=== PATIENT | male | born 1960 | race Caucasian/White ===

== ENCOUNTER 2019-09-26 20:20 | Inpatient (IN) | payer OTHER ==
[~2019-09-26] VITALS: Ht 172.7 cm; Wt 65.4 kg
[2019-09-26 21:00] LABS: BASOPHILS ABSOLUTE AUTO 0.11 K/mm3 (0.00-0.23); BASOPHILS PERCENT AUTO 1 % (0-2); EOSINOPHILS ABSOLUTE AUTO 0.04 K/mm3 (0.00-0.68); EOSINOPHILS PERCENT AUTO 0 % (0-6); Hematocrit 55.6 % (37.0-53.0); Hemoglobin 18.6 g/dL (13.5-17.5); IMMATURE GRAN ABSOLUTE AUTO 0.05 K/mm3 (0.00-0.10); IMMATURE GRAN PERCENT AUTO 0 % (0-1); LYMPHOCYTES ABSOLUTE AUTO 1.65 K/mm3 (0.84-5.20); LYMPHOCYTES PERCENT AUTO 13 % (21-46); MONOCYTES ABSOLUTE AUTO 0.86 K/mm3 (0.16-1.47); MONOCYTES PERCENT AUTO 7 % (4-13); Mean Corpuscular HGB 32.1 pg (26.0-34.0); Mean Corpuscular HGB Conc 33.5 g/dL (31.5-36.5); Mean Corpuscular Volume 96 fL (80-100); Mean Platelet Volume 9.1 fL (9.1-12.4); NEUTROPHILS ABSOLUTE AUTO 10.31 K/mm3 (1.96-9.15); NEUTROPHILS PERCENT AUTO 79 % (41-73); NRBC ABSOLUTE 0.02 K/mm3 (0.00-0.02); NRBC Auto 0.2 /100 WBC (0.0-0.2); Platelet Count 253 K/mm3 (150-400); RDW Coefficient Variation 12.6 % (11.7-14.2); White Blood Cell Count 13.02 K/mm3 (4.00-11.30)
[2019-09-26 21:22] LABS: Alanine Aminotransfer (ALT/SGP 36 U/L (12-78); Albumin, Blood 3.5 g/dL (3.4-5.0); Albumin/Globulin Ratio 0.9 (0.8-1.8); Alk Phos 85 U/L (50-136); Anion Gap 7 mmol/L (6-16); Aspartate Aminotrans (AST/SGOT 61 U/L (12-37); Bilirubin, Total 0.4 mg/dL (0.1-1.0); Blood Urea Nitrogen 8 mg/dL (8-24); Bun/Creatinine Ratio 11.2 (12.0-20.0); CO2, Blood 27 mmol/L (21-32); Calcium, Blood 8.7 mg/dL (8.5-10.1); Chloride, Blood 106 mmol/L (98-108); Creatinine, Blood 0.72 mg/dL (0.60-1.20); Globulin, Blood 3.7 g/dL (2.2-4.0); Glomerular Filtration Rate >60 (60-); Glucose, Blood 117 mg/dL (70-99); Potassium, Blood 3.9 mmol/L (3.5-5.5); Sodium, Blood 140 mmol/L (136-145); Total Protein, Blood 7.2 g/dL (6.4-8.2)
[2019-09-26 23:54] LABS: Cholesterol 176 mg/dL (50-200); HDL Cholesterol 59 mg/dL (>39); LDL/HDL RATIO 1.1; Low Density Lipoprotein Chol 63 mg/dL (0-110); Triglycerides 269 mg/dL (30-160); Very Low Density Lipoprot Chol 53 mg/dL (6-32)
[2019-09-27] MEDS ORDERED: DULO60 PO (01:34)
[2019-09-27 04:38] LABS: BASOPHILS ABSOLUTE AUTO 0.07 K/mm3 (0.00-0.23); BASOPHILS PERCENT AUTO 0 % (0-2); EOSINOPHILS PERCENT AUTO 0 % (0-6); Hematocrit 52.8 % (37.0-53.0); Hemoglobin 17.8 g/dL (13.5-17.5); IMMATURE GRAN ABSOLUTE AUTO 0.09 K/mm3 (0.00-0.10); IMMATURE GRAN PERCENT AUTO 1 % (0-1); LYMPHOCYTES ABSOLUTE AUTO 0.94 K/mm3 (0.84-5.20); LYMPHOCYTES PERCENT AUTO 6 % (21-46); MONOCYTES ABSOLUTE AUTO 1.15 K/mm3 (0.16-1.47); MONOCYTES PERCENT AUTO 7 % (4-13); Mean Corpuscular HGB 31.6 pg (26.0-34.0); Mean Corpuscular HGB Conc 33.7 g/dL (31.5-36.5); Mean Corpuscular Volume 94 fL (80-100); NEUTROPHILS ABSOLUTE AUTO 14.47 K/mm3 (1.96-9.15); NEUTROPHILS PERCENT AUTO 87 % (41-73); Platelet Count 218 K/mm3 (150-400); RDW Coefficient Variation 12.5 % (11.7-14.2); RDW Standard Deviation 43.3 fL (35.1-46.3); Red Blood Cell Count 5.63 M/mm3 (4.30-5.90); White Blood Cell Count 16.72 K/mm3 (4.00-11.30)
[2019-09-27 04:56] LABS: Alanine Aminotransfer (ALT/SGP 31 U/L (12-78); Albumin, Blood 3.3 g/dL (3.4-5.0); Albumin/Globulin Ratio 0.9 (0.8-1.8); Alk Phos 94 U/L (50-136); Anion Gap 8 mmol/L (6-16); Aspartate Aminotrans (AST/SGOT 45 U/L (12-37); Bilirubin, Total 0.8 mg/dL (0.1-1.0); Blood Urea Nitrogen 8 mg/dL (8-24); Bun/Creatinine Ratio 12.2 (12.0-20.0); CO2, Blood 24 mmol/L (21-32); Calcium, Blood 7.8 mg/dL (8.5-10.1); Chloride, Blood 109 mmol/L (98-108); Creatinine, Blood 0.66 mg/dL (0.60-1.20); Globulin, Blood 3.5 g/dL (2.2-4.0); Glomerular Filtration Rate >60 (60-); Glucose, Blood 131 mg/dL (70-99); Potassium, Blood 4.1 mmol/L (3.5-5.5); Sodium, Blood 141 mmol/L (136-145); Total Protein, Blood 6.8 g/dL (6.4-8.2)
--- NOTE | 2019-09-27 05:13 | NUR ---
SHIFT SUMMARY- PT. ADMIT FROM ED. A&OX4, INDEPENDENT IN ROOM. PT. C/O ABD PAIN AND NA, MEDICATED PER EMAR WITH MINIMAL RELIEF. PT. RESTED ON/OFF DURING THE NIGHT. NO APPARENT DISTRESS NOTED. PT. NPO, IV FLUIDS INFUSING. CALL LIGHT WITHIN REACH AND SIDE RAILS UP X2. WILL CONT TO MONITOR.
--- NOTE | 2019-09-27 16:21 | NUR ---
DR PABLO NOTIFIED OF CHANGE IN PATIENT VS. HR INCREASED TO THE 130'S. ORDERS RECEIVED TO INCREASE FLUIDS TO 200ML/HR X2 HOURS AND THEN CONTINUE AT 100ML/HR AFTER THAT.
--- NOTE | 2019-09-27 17:58 | NUR ---
PATIENT A/OX4, UP WITH SBA. SKIN INTACT. 20G IV TO R WRIST WNL. NS INFUSING AT 200ML/HR X2 HOURS AND THEN WILL BE DECREASED TO 100ML/HR. PAIN IMPROVED THROUGHOUT THE SHIFT. B/P REMAINS ELEAVTED. HYDRALAZINE GIVEN X3 THIS SHIFT AND CLONIDINE X1 TO CONTROL. HR INCREASING THROUGHOUT THE DAY, HIGH THE 130'S. DR. CLAYTON AWARE OF CHANGE IN VSS AND INCREASED RATE OF FLUIDS. ATIVAN GIVEN THIS AM PER MD ORDER AND PATIENT VERY DROWSY AND CONFUSED FOR MOST OF THE DAY AFTER RECEIVING. CONTINUES TO HAVE N/V, TREATING WITH ZOFRAN WITH STATED RELEIF. MRI OF ABDOMEN ORDERED AND WILL BE COMPLETED THIS EVENING. CIWA SCORES WERE WNL, PATIENT DOES HAVE MODERATE TREMOR. PATIENT REMAINS NPO.
[2019-09-28 05:13] LABS: U Amphetamine Screen DETECTED; U Barbituate Screen Not Detected; U Benzodiazapine Screen DETECTED; U Buprenorphine Screen Not Detected; U Cannabinoids Screen Not Detected; U Cocaine Screen Not Detected; U Methadone Screen Not Detected; U Methamphetamine Screen DETECTED; U Opiates Screen DETECTED; U Oxycodone Screen Not Detected; U Phencyclidine Screen Not Detected; U Propoxyphene Screen Not Detected
[2019-09-28 05:26] LABS: BASOPHILS ABSOLUTE AUTO 0.03 K/mm3 (0.00-0.23); BASOPHILS PERCENT AUTO 0 % (0-2); EOSINOPHILS PERCENT AUTO 0 % (0-6); Hematocrit 47.8 % (37.0-53.0); Hemoglobin 16.1 g/dL (13.5-17.5); IMMATURE GRAN ABSOLUTE AUTO 0.28 K/mm3 (0.00-0.10); IMMATURE GRAN PERCENT AUTO 1 % (0-1); LYMPHOCYTES ABSOLUTE AUTO 0.53 K/mm3 (0.84-5.20); LYMPHOCYTES PERCENT AUTO 3 % (21-46); MONOCYTES ABSOLUTE AUTO 1.39 K/mm3 (0.16-1.47); MONOCYTES PERCENT AUTO 7 % (4-13); Mean Corpuscular HGB 31.4 pg (26.0-34.0); Mean Corpuscular HGB Conc 33.7 g/dL (31.5-36.5); Mean Corpuscular Volume 93 fL (80-100); NEUTROPHILS ABSOLUTE AUTO 18.29 K/mm3 (1.96-9.15); NEUTROPHILS PERCENT AUTO 89 % (41-73); Platelet Count 181 K/mm3 (150-400); RDW Standard Deviation 44.7 fL (35.1-46.3); Red Blood Cell Count 5.12 M/mm3 (4.30-5.90); White Blood Cell Count 20.52 K/mm3 (4.00-11.30)
[2019-09-28 05:46] LABS: Alanine Aminotransfer (ALT/SGP 21 U/L (12-78); Albumin, Blood 2.6 g/dL (3.4-5.0); Albumin/Globulin Ratio 0.6 (0.8-1.8); Alk Phos 77 U/L (50-136); Anion Gap 7 mmol/L (6-16); Aspartate Aminotrans (AST/SGOT 44 U/L (12-37); Bilirubin, Total 1.2 mg/dL (0.1-1.0); Blood Urea Nitrogen 11 mg/dL (8-24); Bun/Creatinine Ratio 15.4 (12.0-20.0); CO2, Blood 26 mmol/L (21-32); Calcium, Blood 8.1 mg/dL (8.5-10.1); Chloride, Blood 108 mmol/L (98-108); Creatinine, Blood 0.72 mg/dL (0.60-1.20); Glomerular Filtration Rate >60 (60-); Glucose, Blood 104 mg/dL (70-99); Potassium, Blood 3.5 mmol/L (3.5-5.5); Sodium, Blood 141 mmol/L (136-145); Total Protein, Blood 6.6 g/dL (6.4-8.2)
--- NOTE | 2019-09-28 06:15 | NUR ---
SHIFT SUMMARY ASSUMED CARE OF PT AT 1900. PT IS A/OX4, DENIES N/T IN EXTREMITES. HEART SOUNDS REGULAR, LUNG SOUNDS CLEAR, DENIES CP/SOB AT THIS TIME. PT HAD TWO EPISODES OF ELEVEATED BP, MEDICATED PER EMAR. PT PULLED OUT IV, STATING IT WAS CAUGHT ON SOMETHING. PT C/O PAIN IN ABB AND NEASEA, MEDICATED PER EMAR. PT WAS UNABLE TO HAND MRI YESTERDAY EVENING BEUCASE HE GOT CLOSTERPHOBIC AND YELLED TO HAVE THE TEST STOPPED. ATTEMPTING ANOTHER MRI TODAY, PT REMINED NPO. PT SLEPT T/O THE WHOLE SHIFT. CALL LIGHT IN REACH, BED IN LOWEST POSTION, WILL CONTINUE TO MONITOR UNTIL DAYSHIFT NURSE ARRIVES.
--- NOTE | 2019-09-28 17:01 | NUR ---
PT IS ALERT AND ORIENTED X4. HEART SOUNDS REGULAR, CLEAR LUNG SOUNDS IN ALL SIDES. NO SOB. CIWA OF 2 AND NO APPARENT DISTRESS. PT WAS UNABLE TO DO THE MRI TODAY DUE TO CLAUTROPHOBIC AND INCREASED ANXIETY, INSTEAD HE HAD CT CONTRAST DONE TODAY ON HIS ABD AND PELVIS. PT HAD A COUPLE EPISODES OF ELEVATED BP TODAY, PT C/O OF PAIN IN HIS ABD AND MODERATE HEADACHE; MEDICATED PER EMAR. CLEAR LIQUIDS IS ORDERED PER EMAR. PT WAS NOT ABLE TO TOLERATE CLEAR BROTH, BUT DRINK A LITTLE BIT OF WATER. CALL LIGHT WITHIN REACH, BED IN THE LOWEST POSITION, AND WILL CONTINUE MONITORING.
--- NOTE | 2019-09-29 05:09 | NUR ---
SHIFT SUMMARY ASSUMED CARE OF PT AT 1900. PT IS A/OX4, DENIES N/T IN EXTREMITES. HEART SOUNDS IRREGULAR, LUNG SOUNDS CLEAR, DENIES SOB/CP AT THIS TIME. ABD DISTENDED AND FIRM. C/O PAIN, MEDICATED PER EMAR. PT BP WAS ELAVATED OVER 170 SYSTOLIC, MEDICATED PER EMAR. PT IS MORE ALERT AND AWAKE THAT THE PAST COUPLE OF DAYS. NO ACUTE EVENTS DURING THE NIGHT. PT SLEPT T/O THE NIGHT. CALL LIGHT IN REACH, BED IN LOWEST POSTION, WILL CONTINUE TO MONITOR UNTIL DAYSHIFT NURSE ARRIVES.
[2019-09-29 05:26] LABS: BASOPHILS ABSOLUTE AUTO 0.03 K/mm3 (0.00-0.23); BASOPHILS PERCENT AUTO 0 % (0-2); EOSINOPHILS PERCENT AUTO 0 % (0-6); Hematocrit 42.4 % (37.0-53.0); Hemoglobin 14.4 g/dL (13.5-17.5); IMMATURE GRAN ABSOLUTE AUTO 0.15 K/mm3 (0.00-0.10); IMMATURE GRAN PERCENT AUTO 1 % (0-1); LYMPHOCYTES ABSOLUTE AUTO 0.75 K/mm3 (0.84-5.20); LYMPHOCYTES PERCENT AUTO 5 % (21-46); MONOCYTES ABSOLUTE AUTO 1.22 K/mm3 (0.16-1.47); MONOCYTES PERCENT AUTO 8 % (4-13); Mean Corpuscular HGB 32.1 pg (26.0-34.0); Mean Corpuscular Volume 94 fL (80-100); Mean Platelet Volume 10.1 fL (9.1-12.4); NEUTROPHILS ABSOLUTE AUTO 13.44 K/mm3 (1.96-9.15); NEUTROPHILS PERCENT AUTO 86 % (41-73); Platelet Count 145 K/mm3 (150-400); RDW Standard Deviation 45.2 fL (35.1-46.3); Red Blood Cell Count 4.49 M/mm3 (4.30-5.90); White Blood Cell Count 15.59 K/mm3 (4.00-11.30)
[2019-09-29 05:50] LABS: Alanine Aminotransfer (ALT/SGP 18 U/L (12-78); Albumin, Blood 2.6 g/dL (3.4-5.0); Albumin/Globulin Ratio 0.7 (0.8-1.8); Alk Phos 62 U/L (50-136); Anion Gap 8 mmol/L (6-16); Aspartate Aminotrans (AST/SGOT 33 U/L (12-37); Blood Urea Nitrogen 8 mg/dL (8-24); CO2, Blood 27 mmol/L (21-32); Chloride, Blood 104 mmol/L (98-108); Creatinine, Blood 0.62 mg/dL (0.60-1.20); Globulin, Blood 3.5 g/dL (2.2-4.0); Glomerular Filtration Rate >60 (60-); Glucose, Blood 89 mg/dL (70-99); Potassium, Blood 3.3 mmol/L (3.5-5.5); Sodium, Blood 139 mmol/L (136-145); Total Protein, Blood 6.1 g/dL (6.4-8.2)
--- NOTE | 2019-09-29 15:27 | NUR ---
PATIENT A/OX4, UP INDEPENDENTLY IN ROOM. PAIN IMPORVED TODAY TO ABDOMEN. DECREASED FENTANYL DOSE FROM 50MCG TO 25MCG WITH STATED RELIEF. ADVANCED TO BRAT DIET. PATIENT STILL TAKING IN VERY LITTLE PO. DENIES ANY NAUSEA THIS SHIFT. NS WITH 20K INFUSING AT 75ML/HR. SKIN INTACT. 20G IV TO R FA WNL. CALM AND COOPERATIVE WITH CARE, CALLS APPROPRIATELY FOR ASSISTANCE.
--- NOTE | 2019-09-29 18:38 | NUR ---
SHIFT SUMMARY PT HAS BEEN SLEEPING SINCE THIS RN ASSUMED CARE. PT AWAKE NOW AND C/O ABD/BACK/NECK PAIN. MEDICATED FOR PAIN PER EMAR. PT HAS NO FURTHER COMPLAINTS OR REQUESTS AT THIS TIME. CALL LIGHT IN REACH. WILL REPORT TO ONCOMING RN.
--- NOTE | 2019-09-30 04:46 | NUR ---
SHIFT SUMMARY ASSUMED CARE OF PT AT 1900. PT IS A/OX4, DENIES N/T IN EXTRMITES. HEART SOUNDS REGULAR, LUNG SOUNDS CLEAR, DENIES SOB/CP AT THIS TIME. PT C/O PAIN IN HIS ABD, MEDICATED PER EMAR. PT IS INDEPENDENT TO THE BATHROOM. PT IS ASKING ABOUT GOING HOME TODAY. NO ACUTE EVENTS DURING THE NIGHT. PT SLEPT MOST OF THE NIGHT. CALL LIGHT IN REACH, BED IN LOWEST POSTION, WILL CONTINUE TO MONITOR UNTIL DAYSHIFT NURSE ARRIVES.
[2019-09-30 05:27] LABS: BASOPHILS ABSOLUTE AUTO 0.02 K/mm3 (0.00-0.23); BASOPHILS PERCENT AUTO 0 % (0-2); EOSINOPHILS ABSOLUTE AUTO 0.02 K/mm3 (0.00-0.68); EOSINOPHILS PERCENT AUTO 0 % (0-6); Hematocrit 40.8 % (37.0-53.0); Hemoglobin 13.7 g/dL (13.5-17.5); IMMATURE GRAN ABSOLUTE AUTO 0.06 K/mm3 (0.00-0.10); IMMATURE GRAN PERCENT AUTO 1 % (0-1); LYMPHOCYTES ABSOLUTE AUTO 0.74 K/mm3 (0.84-5.20); LYMPHOCYTES PERCENT AUTO 7 % (21-46); MONOCYTES ABSOLUTE AUTO 1.07 K/mm3 (0.16-1.47); MONOCYTES PERCENT AUTO 10 % (4-13); Mean Corpuscular HGB 32.1 pg (26.0-34.0); Mean Corpuscular HGB Conc 33.6 g/dL (31.5-36.5); Mean Corpuscular Volume 96 fL (80-100); Mean Platelet Volume 9.9 fL (9.1-12.4); NEUTROPHILS ABSOLUTE AUTO 8.57 K/mm3 (1.96-9.15); NEUTROPHILS PERCENT AUTO 82 % (41-73); Platelet Count 143 K/mm3 (150-400); RDW Coefficient Variation 12.7 % (11.7-14.2); RDW Standard Deviation 44.5 fL (35.1-46.3); Red Blood Cell Count 4.27 M/mm3 (4.30-5.90); White Blood Cell Count 10.48 K/mm3 (4.00-11.30)
[2019-09-30 05:54] LABS: Anion Gap 6 mmol/L (6-16); Blood Urea Nitrogen 6 mg/dL (8-24); CO2, Blood 29 mmol/L (21-32); Calcium, Blood 7.9 mg/dL (8.5-10.1); Chloride, Blood 104 mmol/L (98-108); Glomerular Filtration Rate >60 (60-); Glucose, Blood 108 mg/dL (70-99); Potassium, Blood 3.2 mmol/L (3.5-5.5); Sodium, Blood 139 mmol/L (136-145)
--- NOTE | 2019-09-30 18:25 | NUR ---
SHIFT SUMMARY. A&OX4, INDEPENDENT IN ROOM, NO SAFETY CONCERNS. PT CONTINUES WITH ABD PAIN THROUGHOUT SHIFT, PAIN MANAGED WITH CURRENT ORDERS. PT REPORTED NAUSEA WITHOUT VOMMITTING THIS AM, NAUSEA RESOLVED WITH IV ZOFRAN. CONTINUES WITH MAINTENCE FLUIDS, IV PATENT. NO NEW CHANGES OR CONCERNS.
--- NOTE | 2019-10-01 04:49 | NUR ---
BILL OF LADING CLERK SUMMARY NO ACUTE CHANGES THIS SHIFT. PT AAOX4 AND INDEPENDENT. MEDICATED FOR ABD PAIN WITH FENTANYL 25 MCG Q4H. PT HAS BEEN ABLE TO REST THE MAJORITY OF THE SHIFT. PT EXPRESSED THE WANT TO QUIT DRINKING ALCOHOL AND SMOKING CIGARETTES ONCE DISCHARGED. WILL CONTINUE TO MONITOR.
--- NOTE | 2019-10-01 18:08 | NUR ---
SHIFT SUMMARY: PT A&O X4 AND 1 PERSON ASSIST IN ROOM. PT ABLE TO AMBULATE TO BATHROOM WITH PHYSICAL THERAPY. HE IS USING THE URINAL IN BED AND HAS BEEN CONTINENT TODAY. PT HAS REPORTED TOLERABLE LEVELS OF PAIN AND HAS DENIED ANY NEED FOR PAIN MEDICATION. HE HAS ALSO REPORTED NO NAUSEA. LUNGS ARE COARSE THROUGHOUT. PT ON RA. WILL CONTINUE TO MONITOR PT UNTIL GIVING REPORT TO NIGHT RN.
--- NOTE | 2019-10-01 18:17 | NUR ---
SHIFT SUMMARY: PT A&O X4 AND IS INDEPENDENT IN ROOM. PT MEDICATED FOR ABD PAIN THROUGHOUT THE SHIFT. SEE EMAR. LUNGS ARE CLEAR AND PT IS ON RA. PT DENIES ANY NAUSEA. PT WALKED THE HALLWAY SEVERAL TIMES THROUGHOUT SHIFT. WILL CONTINUE TO MONITOR PT UNTIL GIVING REPORT TO NIGHT RN.
--- NOTE | 2019-10-02 05:00 | NUR ---
GLASS MOULD CLEANER SUMMARY AAOX4. NO ACUTE CHANGES THROUGHOUT SHIFT. PT REPORTED ABD PAIN MEDICATED ACCORDING TO EMR. PT REPORTED RELIEF AFTER MEDICATION. VVS. WILL CONTIUNE TO MOINTOR UNTIL SHIFT CHANGE.
[2019-10-02 06:08] LABS: BASOPHILS ABSOLUTE AUTO 0.05 K/mm3 (0.00-0.23); BASOPHILS PERCENT AUTO 0 % (0-2); EOSINOPHILS ABSOLUTE AUTO 0.16 K/mm3 (0.00-0.68); EOSINOPHILS PERCENT AUTO 1 % (0-6); Hematocrit 43.6 % (37.0-53.0); Hemoglobin 15.1 g/dL (13.5-17.5); IMMATURE GRAN ABSOLUTE AUTO 0.05 K/mm3 (0.00-0.10); IMMATURE GRAN PERCENT AUTO 0 % (0-1); LYMPHOCYTES ABSOLUTE AUTO 1.47 K/mm3 (0.84-5.20); LYMPHOCYTES PERCENT AUTO 13 % (21-46); MONOCYTES PERCENT AUTO 15 % (4-13); Mean Corpuscular HGB 31.7 pg (26.0-34.0); Mean Corpuscular HGB Conc 34.6 g/dL (31.5-36.5); NEUTROPHILS PERCENT AUTO 69 % (41-73); RDW Coefficient Variation 12.2 % (11.7-14.2); RDW Standard Deviation 41.4 fL (35.1-46.3); Red Blood Cell Count 4.77 M/mm3 (4.30-5.90); White Blood Cell Count 11.13 K/mm3 (4.00-11.30)
[2019-10-02 06:20] LABS: Mean Corpuscular Volume 91 fL (80-100); Platelet Count 131 K/mm3 (150-400)
[2019-10-02 06:32] LABS: Alanine Aminotransfer (ALT/SGP 32 U/L (12-78); Albumin, Blood 2.7 g/dL (3.4-5.0); Albumin/Globulin Ratio 0.7 (0.8-1.8); Alk Phos 70 U/L (50-136); Anion Gap 8 mmol/L (6-16); Aspartate Aminotrans (AST/SGOT 49 U/L (12-37); Bilirubin, Total 0.8 mg/dL (0.1-1.0); Blood Urea Nitrogen 9 mg/dL (8-24); Bun/Creatinine Ratio 14.9 (12.0-20.0); CO2, Blood 25 mmol/L (21-32); Calcium, Blood 8.6 mg/dL (8.5-10.1); Chloride, Blood 101 mmol/L (98-108); Globulin, Blood 4.1 g/dL (2.2-4.0); Glomerular Filtration Rate >60 (60-); Glucose, Blood 96 mg/dL (70-99); Potassium, Blood 3.9 mmol/L (3.5-5.5); Sodium, Blood 134 mmol/L (136-145); Total Protein, Blood 6.8 g/dL (6.4-8.2)
[2019-10-02] MEDS ORDERED: LISI20 PO (08:20)
[2019-10-02] MEDS ORDERED: ALBU90OI INH (08:20)
[2019-10-02] MEDS ORDERED: MULTIVITAMINS1 EAC3 PO (08:26)
--- NOTE | 2019-10-02 09:47 | NUR ---
DISCHARGE INSTRUCTIONS REVIEWED WITH PT, IV DC'D INTACT BY RN STUDENT. PT CURRENTLY AWAITING RIDE HOME.
--- NOTE | 2019-10-02 09:54 | NUR ---
PT TO DISCHARGED AT 0953, ESCORTED OUT VIA W/C.
== END 2019-10-02 09:53 | disposition home or self-care (01) | DRG 439 ==
LOC: ER 20:20 → MEDS 09-27 01:14 → ENPENDDIS 10-02 08:00 → MEDS 10-02 09:53
PROVIDERS: Emergency Medicine; Internal Medicine; Internal Medicine Gastroenterology; ADMIT Internal Medicine
DX: K85.20 Alcohol induced acute pancreatitis without necrosis or infection (principal); F10.239 Alcohol dependence with withdrawal, unspecified; F32.9 Major depressive disorder, single episode, unspecified; E86.0 Dehydration; E87.6 Hypokalemia; I10 Essential (primary) hypertension; D18.09 Hemangioma of other sites; F17.210 Nicotine dependence, cigarettes, uncomplicated
CPT/HCPCS: 36415; 74177; 74183; 76705; 80048; 80053; 80061; 82105; 83690; 83735; 85025; 93005; 93010; 96361; 96374; 96375; 99285-25; A9270; J0360; J1170; J1650; J2060; J2270; J2405; J3010; J3480; J7030; Q9967

== ENCOUNTER 2020-02-28 09:22 | Inpatient (IN) | payer OTHER ==
[~2020-02-28] VITALS: Ht 172.7 cm; Wt 62.1 kg
[~2020-02-28 09:22] MED LIST: ALBU90OI INH; DULO60 PO; LISI20 PO; MULTIVITAMINS1 EAC3 PO
[2020-02-28 10:17] LABS: BASOPHILS ABSOLUTE AUTO 0.03 K/mm3 (0.00-0.23); BASOPHILS PERCENT AUTO 0 % (0-2); EOSINOPHILS PERCENT AUTO 0 % (0-6); Hematocrit 48.1 % (37.0-53.0); Hemoglobin 16.5 g/dL (13.5-17.5); IMMATURE GRAN ABSOLUTE AUTO 0.04 K/mm3 (0.00-0.10); IMMATURE GRAN PERCENT AUTO 0 % (0-1); LYMPHOCYTES ABSOLUTE AUTO 0.64 K/mm3 (0.84-5.20); LYMPHOCYTES PERCENT AUTO 5 % (21-46); MONOCYTES ABSOLUTE AUTO 1.15 K/mm3 (0.16-1.47); MONOCYTES PERCENT AUTO 10 % (4-13); Mean Corpuscular HGB 34.2 pg (26.0-34.0); Mean Corpuscular HGB Conc 34.3 g/dL (31.5-36.5); Mean Corpuscular Volume 100 fL (80-100); Mean Platelet Volume 9.5 fL (9.1-12.4); NEUTROPHILS ABSOLUTE AUTO 10.12 K/mm3 (1.96-9.15); NEUTROPHILS PERCENT AUTO 85 % (41-73); Platelet Count 224 K/mm3 (150-400); RDW Coefficient Variation 13.2 % (11.7-14.2); RDW Standard Deviation 48.5 fL (35.1-46.3); Red Blood Cell Count 4.82 M/mm3 (4.30-5.90); White Blood Cell Count 11.98 K/mm3 (4.00-11.30)
[2020-02-28 10:38] LABS: Alanine Aminotransfer (ALT/SGP 27 U/L (12-78); Albumin, Blood 3.2 g/dL (3.4-5.0); Albumin/Globulin Ratio 0.8 (0.8-1.8); Alk Phos 107 U/L (50-136); Anion Gap 7 mmol/L (6-16); Aspartate Aminotrans (AST/SGOT 44 U/L (12-37); Bilirubin, Total 2.1 mg/dL (0.1-1.0); Blood Urea Nitrogen 10 mg/dL (8-24); CO2, Blood 27 mmol/L (21-32); Calcium, Blood 8.6 mg/dL (8.5-10.1); Chloride, Blood 105 mmol/L (98-108); Creatinine, Blood 0.83 mg/dL (0.60-1.20); Globulin, Blood 3.9 g/dL (2.2-4.0); Glomerular Filtration Rate >60 (60-); Glucose, Blood 140 mg/dL (70-99); Potassium, Blood 3.7 mmol/L (3.5-5.5); Sodium, Blood 139 mmol/L (136-145); Total Protein, Blood 7.1 g/dL (6.4-8.2); Troponin I <0.015 ng/mL (0.000-0.040)
[2020-02-28] MEDS ORDERED: Aspirin EC81 MG PO (11:28)
[2020-02-28] MEDS ORDERED: ALBU90OI INH (11:28)
[2020-02-28] MEDS ORDERED: LISI10 PO (11:29)
[2020-02-28] MEDS ORDERED: OMEP20ER PO (11:29)
[2020-02-28] MEDS ORDERED: ATORVASTATIN CA10 M1 PO (11:29)
[2020-02-28] MEDS ORDERED: CYCL10 PO ×2 (11:29→13:36)
[2020-02-28] MEDS ORDERED: DULO60 PO (11:29)
[2020-02-28 13:44] LABS: Source, Urine Clean Catch
[2020-02-28 13:52] LABS: Appearance, Urine Clear (Clear); Blood, Urine 1+ (Neg); Color, Urine Amber (P-Yellow); Glucose Qualitative, Urine Neg (Neg); Ketones, Urine 3+ (Neg); Leukocyte Esterase, Urine 1+ (Neg); Nitrite, Urine Pos (Neg); Protein, Urine 2+ (Neg); Specific Gravity, Urine 1.025 (1.003-1.022); Urobilinogen, Urine 1+ (Normal)
[2020-02-28 14:09] LABS: Bilirubin, Urine 1+ (Neg)
[2020-02-28 14:11] LABS: Mucus Mod (0-Heavy)
[2020-02-28 14:13] LABS: Bacteria Mod /hpf; Squamous Epithelial Cells Not Seen /hpf (Few)
--- NOTE | 2020-02-28 16:46 | NUR ---
PT ARRIVED TO UNIT VIA STRETCHER, A/O X 4, PLEASANT/COOPERATIVE, VS TAKEN; SBP 165
[2020-02-28 21:37] LABS: U Amphetamine Screen Not Detected; U Barbituate Screen Not Detected; U Benzodiazapine Screen Not Detected; U Buprenorphine Screen Not Detected; U Cannabinoids Screen Not Detected; U Cocaine Screen Not Detected; U Methadone Screen Not Detected; U Methamphetamine Screen Not Detected; U Opiates Screen DETECTED; U Oxycodone Screen Not Detected; U Phencyclidine Screen Not Detected; U Propoxyphene Screen Not Detected
[2020-02-29 05:16] LABS: BASOPHILS ABSOLUTE AUTO 0.05 K/mm3 (0.00-0.23); BASOPHILS PERCENT AUTO 1 % (0-2); EOSINOPHILS ABSOLUTE AUTO 0.13 K/mm3 (0.00-0.68); EOSINOPHILS PERCENT AUTO 2 % (0-6); Hematocrit 40.3 % (37.0-53.0); Hemoglobin 13.4 g/dL (13.5-17.5); IMMATURE GRAN ABSOLUTE AUTO 0.02 K/mm3 (0.00-0.10); IMMATURE GRAN PERCENT AUTO 0 % (0-1); LYMPHOCYTES ABSOLUTE AUTO 1.34 K/mm3 (0.84-5.20); LYMPHOCYTES PERCENT AUTO 15 % (21-46); MONOCYTES ABSOLUTE AUTO 1.03 K/mm3 (0.16-1.47); MONOCYTES PERCENT AUTO 12 % (4-13); Mean Corpuscular HGB 33.5 pg (26.0-34.0); Mean Corpuscular HGB Conc 33.3 g/dL (31.5-36.5); Mean Corpuscular Volume 101 fL (80-100); Mean Platelet Volume 9.4 fL (9.1-12.4); NEUTROPHILS ABSOLUTE AUTO 6.18 K/mm3 (1.96-9.15); NEUTROPHILS PERCENT AUTO 71 % (41-73); Platelet Count 158 K/mm3 (150-400); RDW Coefficient Variation 13.1 % (11.7-14.2); RDW Standard Deviation 49.3 fL (35.1-46.3); White Blood Cell Count 8.75 K/mm3 (4.00-11.30)
--- NOTE | 2020-02-29 05:21 | NUR ---
PATIENT SLEPT MOST OF THE NIGHT. MEDICATED SEVERAL TIMES WITH DILAUDID 0.5MG IV FOR PAIN IN HIS MID UPPER ABDOMEN. NO ACUTE CHANGES. CALL LIGHT IN REACH.
[2020-02-29 05:39] LABS: Alanine Aminotransfer (ALT/SGP 17 U/L (12-78); Albumin, Blood 2.5 g/dL (3.4-5.0); Albumin/Globulin Ratio 0.8 (0.8-1.8); Alk Phos 77 U/L (50-136); Anion Gap 5 mmol/L (6-16); Aspartate Aminotrans (AST/SGOT 25 U/L (12-37); Bilirubin, Total 1.3 mg/dL (0.1-1.0); Blood Urea Nitrogen 5 mg/dL (8-24); Bun/Creatinine Ratio 7.7 (12.0-20.0); CO2, Blood 27 mmol/L (21-32); Calcium, Blood 7.8 mg/dL (8.5-10.1); Chloride, Blood 105 mmol/L (98-108); Creatinine, Blood 0.65 mg/dL (0.60-1.20); Globulin, Blood 3.1 g/dL (2.2-4.0); Glomerular Filtration Rate >60 (60-); Glucose, Blood 120 mg/dL (70-99); Magnesium, Blood 1.5 mg/dL (1.6-2.4); Phosphorus, Blood 1.5 mg/dL (2.5-4.9); Potassium, Blood 3.6 mmol/L (3.5-5.5); Sodium, Blood 137 mmol/L (136-145); Total Protein, Blood 5.6 g/dL (6.4-8.2)
--- NOTE | 2020-02-29 16:49 | NUR ---
SHIFT SUMMARY PT A&OX4, VSS, PAIN IN MID TO LEFT UPPER ABD. PAIN MANAGED WITH 0.5 MG DILAUDID; ORAL OXY 5 MG STARTED TODAY BUT PT REP NOT ENOUGH TO MANAGE PAIN AT THIS TIME. ANNMARIE CL DIET; ENC AND EDU TO KEEP INTAKE SLOW AND LOW AMT. VOIDING WELL. AMBULATES INDEPENDENT TO BRP/UP IN ROOM/HALLWAYS. TCDB & I.S. EDU & ENC. WILL REPORT TO ONCOMING NOC RN.
--- NOTE | 2020-03-01 06:14 | NUR ---
SHIFT SUMMARY PT RESTED INTERMITTENTLY THIS AM. AAOX4/ANXIOUS AT TIMES. DISCOMFORT DECREASED WITH ROXICODONE Q4H + 0.5MG IV DILAUDID X1 FOR BREAKTHROUGH. NO NAUSEA/EMESIS. PT TOLERATING DIET WELL, NO NAUSEA. INDEPENDENT IN ROOM + OUT TO SMOKE X2 THIS SHIFT. GOOD URINE OUTPUT, PT REPORTING FLATUS, NO STOOL THIS SHIFT. NEW IV PLACED YESTARDAY EVENING. CONTINUE TO ENCOURAGE PO PAIN MEDICATIONS TOLERATED + AMBULATION. PT CURRENTLY RESTING IN BED WITH CALL LIGHT IN REACH.
--- NOTE | 2020-03-01 15:48 | NUR ---
SHIFT SUMMARY NO ACUTE CHANGES THIS SHIFT. PT STILL REPORTS INTERMITTENT ABD PAIN. RECEIVING 1 ROXICODONE + 0.25 IV DILAUDID FOR BREAKTHROUGH PAIN. INDEP IN HALLWAYS. DIET REMAINS AT CLEAR LIQS PT REPORTS SOME INCREASED ABDOMINAL PAIN WITH PO. POSSIBLE DISCHARGE HOME TOMORROW IF PT CONT TO FEEL BETTER. CALL LIGHT WITHIN REACH.
[2020-03-02 05:15] LABS: BASOPHILS ABSOLUTE AUTO 0.07 K/mm3 (0.00-0.23); BASOPHILS PERCENT AUTO 1 % (0-2); EOSINOPHILS PERCENT AUTO 4 % (0-6); Hematocrit 38.4 % (37.0-53.0); Hemoglobin 12.9 g/dL (13.5-17.5); IMMATURE GRAN ABSOLUTE AUTO 0.02 K/mm3 (0.00-0.10); IMMATURE GRAN PERCENT AUTO 0 % (0-1); LYMPHOCYTES ABSOLUTE AUTO 1.51 K/mm3 (0.84-5.20); LYMPHOCYTES PERCENT AUTO 22 % (21-46); MONOCYTES ABSOLUTE AUTO 0.87 K/mm3 (0.16-1.47); MONOCYTES PERCENT AUTO 12 % (4-13); Mean Corpuscular HGB 33.9 pg (26.0-34.0); Mean Corpuscular HGB Conc 33.6 g/dL (31.5-36.5); Mean Corpuscular Volume 101 fL (80-100); Mean Platelet Volume 10.3 fL (9.1-12.4); NEUTROPHILS ABSOLUTE AUTO 4.25 K/mm3 (1.96-9.15); NEUTROPHILS PERCENT AUTO 61 % (41-73); Platelet Count 202 K/mm3 (150-400); RDW Coefficient Variation 12.6 % (11.7-14.2); RDW Standard Deviation 46.9 fL (35.1-46.3); White Blood Cell Count 7.02 K/mm3 (4.00-11.30)
--- NOTE | 2020-03-02 05:58 | NUR ---
SHIFT SUMMARY PT RESTED WELL THIS SHIFT. AAOX4. DISCOMFORT CONTROLLED WITH ROXICODONE Q4H + 0.5MG IV DILAUDID X2 FOR BREAKTHROUGH. NO NAUSEA/EMESIS. TOLERATING DIET WELL. OUT TO SMOKE FREQUENTLY THIS SHIFT. NO ACUTE CHANGES OVER NIGHT. PT CURRENTLY OUT OF ROOM TO SMOKE.
[2020-03-02 06:03] LABS: Alanine Aminotransfer (ALT/SGP 22 U/L (12-78); Albumin, Blood 2.9 g/dL (3.4-5.0); Albumin/Globulin Ratio 0.8 (0.8-1.8); Alk Phos 74 U/L (50-136); Anion Gap 5 mmol/L (6-16); Aspartate Aminotrans (AST/SGOT 30 U/L (12-37); Bilirubin, Total 0.7 mg/dL (0.1-1.0); Blood Urea Nitrogen 3 mg/dL (8-24); Bun/Creatinine Ratio 4.8 (12.0-20.0); CO2, Blood 29 mmol/L (21-32); Calcium, Blood 8.7 mg/dL (8.5-10.1); Chloride, Blood 102 mmol/L (98-108); Creatinine, Blood 0.62 mg/dL (0.60-1.20); Globulin, Blood 3.6 g/dL (2.2-4.0); Glomerular Filtration Rate >60 (60-); Glucose, Blood 107 mg/dL (70-99); Magnesium, Blood 1.7 mg/dL (1.6-2.4); Phosphorus, Blood 3.2 mg/dL (2.5-4.9); Potassium, Blood 3.7 mmol/L (3.5-5.5); Sodium, Blood 136 mmol/L (136-145); Total Protein, Blood 6.5 g/dL (6.4-8.2)
--- NOTE | 2020-03-02 07:40 | NUR ---
PT TOOK NEXIUM FROM HOME EDUCATED NOT TO TAKE HOME MEDS.
--- NOTE | 2020-03-02 11:24 | NUR ---
PT AMBULATING OUTSIDE.
--- NOTE | 2020-03-02 14:58 | NUR ---
PT OUT OF ROOM
--- NOTE | 2020-03-02 17:37 | NUR ---
SUMMARY NO ACUTE CHANGES T/O SHIFT. PT ADVANCED TO FULL LIQUIDS AT LUNCH; TOLERATED WELL. MEDICATED PER ORDERS FOR PAIN DURING SHIFT. INDEPENDENT IN ROOM. AMBULATES OUTSIDE FREQUENTLY.
--- NOTE | 2020-03-03 05:23 | NUR ---
PT HAD NO ACUTE CHANGES T/O NIGHT. BP ELEVATED, PRN HYSRALAZINE GIVEN X1 W/NOTED IMPROVEMENT. PT DENIED CP/PRESSURE/SOB. PT ANNMARIE FL PO, REP ABD SOMEWHAT LESS DISTENDED THIS AM, REP PASSING FLATUS. PT CONT TO C/O LOWER ABD PAIN AND CRAMPING, REP PAIN ANNMARIE W/PO OXYCODONE. PT VOIDING URINE W/O DIFFICULTY. PT AMB OUTSIDE TO SMOKE SEVERAL TIMES DURING NIGHT. PT CALLING FOR ASSISTANCE, IS PLEASANT AND COOPERATIVE W/CARE.
[2020-03-03 05:58] LABS: BASOPHILS ABSOLUTE AUTO 0.07 K/mm3 (0.00-0.23); BASOPHILS PERCENT AUTO 1 % (0-2); EOSINOPHILS ABSOLUTE AUTO 0.26 K/mm3 (0.00-0.68); EOSINOPHILS PERCENT AUTO 4 % (0-6); Hematocrit 38.6 % (37.0-53.0); IMMATURE GRAN ABSOLUTE AUTO 0.02 K/mm3 (0.00-0.10); IMMATURE GRAN PERCENT AUTO 0 % (0-1); LYMPHOCYTES ABSOLUTE AUTO 1.22 K/mm3 (0.84-5.20); LYMPHOCYTES PERCENT AUTO 20 % (21-46); MONOCYTES ABSOLUTE AUTO 0.94 K/mm3 (0.16-1.47); MONOCYTES PERCENT AUTO 15 % (4-13); Mean Corpuscular HGB 34.1 pg (26.0-34.0); Mean Corpuscular HGB Conc 33.7 g/dL (31.5-36.5); Mean Corpuscular Volume 101 fL (80-100); Mean Platelet Volume 9.5 fL (9.1-12.4); NEUTROPHILS ABSOLUTE AUTO 3.67 K/mm3 (1.96-9.15); NEUTROPHILS PERCENT AUTO 60 % (41-73); Platelet Count 212 K/mm3 (150-400); RDW Coefficient Variation 13.1 % (11.7-14.2); RDW Standard Deviation 49.2 fL (35.1-46.3); Red Blood Cell Count 3.81 M/mm3 (4.30-5.90); White Blood Cell Count 6.18 K/mm3 (4.00-11.30)
[2020-03-03 06:19] LABS: Alanine Aminotransfer (ALT/SGP 25 U/L (12-78); Albumin, Blood 2.8 g/dL (3.4-5.0); Albumin/Globulin Ratio 0.7 (0.8-1.8); Alk Phos 74 U/L (50-136); Anion Gap 6 mmol/L (6-16); Aspartate Aminotrans (AST/SGOT 28 U/L (12-37); Bilirubin, Total 0.5 mg/dL (0.1-1.0); Blood Urea Nitrogen 2 mg/dL (8-24); Bun/Creatinine Ratio 3.3 (12.0-20.0); CO2, Blood 30 mmol/L (21-32); Calcium, Blood 8.7 mg/dL (8.5-10.1); Chloride, Blood 101 mmol/L (98-108); Creatinine, Blood 0.61 mg/dL (0.60-1.20); Globulin, Blood 3.8 g/dL (2.2-4.0); Glomerular Filtration Rate >60 (60-); Glucose, Blood 96 mg/dL (70-99); Magnesium, Blood 1.9 mg/dL (1.6-2.4); Phosphorus, Blood 3.1 mg/dL (2.5-4.9); Potassium, Blood 3.8 mmol/L (3.5-5.5); Sodium, Blood 137 mmol/L (136-145); Total Protein, Blood 6.6 g/dL (6.4-8.2)
[2020-03-03] MEDS ORDERED: OXAYDO5 M1 PO (13:12)
--- NOTE | 2020-03-03 14:09 | NUR ---
DISCHARGED DC'D IV, CATHETER INTACT. CALLED LISINOPRIL SCRIPT INTO [facility] PER PT REQUEST. REVIEWED DC INSTRUCTIONS W/PT; VERBALIZED UNDERSTANDING. PT LEFT UNIT W/PRESCRIPTIONS, DC PAPERWORK AND POSSESSIONS IN HAND BY AMBULATION TO RIDE WAITING OUTSIDE.
== END 2020-03-03 13:48 | disposition home or self-care (01) | DRG 439 ==
LOC: ER 09:22 → SURS 14:31 → MEDS 14:31 → SURS 16:34
PROVIDERS: Family Medicine; Physician Assistant; ADMIT Family Medicine
DX: K85.20 Alcohol induced acute pancreatitis without necrosis or infection (principal); E44.1 Mild protein-calorie malnutrition; F17.210 Nicotine dependence, cigarettes, uncomplicated; E78.5 Hyperlipidemia, unspecified; Z79.82 Long term (current) use of aspirin; E83.39 Other disorders of phosphorus metabolism; E83.42 Hypomagnesemia; F10.20 Alcohol dependence, uncomplicated; R63.0 Anorexia; Z68.20 Body mass index [BMI] 20.0-20.9, adult; D18.09 Hemangioma of other sites; F40.240 Claustrophobia
CPT/HCPCS: 36415; 74181; 76705; 80053; 81001; 83690; 83735; 84100; 84484; 85025; 87086; 93005; 93010; 96361; 96374; 96375; 99285-25; A9270-GY; C9113; G0480; J1170; J1650; J2405; J7030; J7060

== ENCOUNTER → 2020-06-10 | Outpatient (CLI) | payer OTHER ==
[~2020-06-10] MED LIST changes: +ATORVASTATIN CA10 M1 PO; +Aspirin EC81 MG PO; +CYCL10 PO; +LISI10 PO; +OMEP20ER PO; +OXAYDO5 M1 PO
[2020-06-13 06:11] LABS: COTININE Negative ng/mL (Cutoff=300)
== END | disposition home or self-care (01) ==
LOC: OLS 11:41 → LAB SHORT 11:41 → LAB FUT 05-29 12:55 → EDSTATUS 05-29 12:55
PROVIDERS: Neurological Surgery
DX: F17.290 Nicotine dependence, other tobacco product, uncomplicated (principal)

== ENCOUNTER 2020-07-28 23:45 | Emergency (ER) | payer OTHER ==
[~2020-07-28] VITALS: Ht 172.7 cm; Wt 63.5 kg
[2020-07-29 00:59] LABS: BASOPHILS ABSOLUTE AUTO 0.09 K/mm3 (0.00-0.23); BASOPHILS PERCENT AUTO 1 % (0-2); EOSINOPHILS ABSOLUTE AUTO 0.22 K/mm3 (0.00-0.68); EOSINOPHILS PERCENT AUTO 4 % (0-6); Hematocrit 30.6 % (37.0-53.0); Hemoglobin 10.1 g/dL (13.5-17.5); IMMATURE GRAN ABSOLUTE AUTO 0.05 K/mm3 (0.00-0.10); IMMATURE GRAN PERCENT AUTO 1 % (0-1); LYMPHOCYTES ABSOLUTE AUTO 2.13 K/mm3 (0.84-5.20); LYMPHOCYTES PERCENT AUTO 34 % (21-46); MONOCYTES ABSOLUTE AUTO 0.81 K/mm3 (0.16-1.47); MONOCYTES PERCENT AUTO 13 % (4-13); Mean Corpuscular HGB 35.2 pg (26.0-34.0); Mean Corpuscular Volume 107 fL (80-100); Mean Platelet Volume 9.6 fL (9.1-12.4); NEUTROPHILS ABSOLUTE AUTO 2.91 K/mm3 (1.96-9.15); NEUTROPHILS PERCENT AUTO 47 % (41-73); Platelet Count 323 K/mm3 (150-400); RDW Coefficient Variation 17.7 % (11.7-14.2); RDW Standard Deviation 69.9 fL (35.1-46.3); Red Blood Cell Count 2.87 M/mm3 (4.30-5.90); White Blood Cell Count 6.21 K/mm3 (4.00-11.30)
[2020-07-29 01:18] LABS: Alanine Aminotransfer (ALT/SGP 42 U/L (12-78); Albumin, Blood 2.2 g/dL (3.4-5.0); Albumin/Globulin Ratio 0.5 (0.8-1.8); Alk Phos 231 U/L (50-136); Anion Gap 3 mmol/L (6-16); Aspartate Aminotrans (AST/SGOT 58 U/L (12-37); Bilirubin, Total 1.8 mg/dL (0.1-1.0); Blood Urea Nitrogen 6 mg/dL (8-24); Bun/Creatinine Ratio 8.8 (12.0-20.0); CO2, Blood 30 mmol/L (21-32); Chloride, Blood 110 mmol/L (98-108); Creatinine, Blood 0.68 mg/dL (0.60-1.20); Ethanol (Alcohol), Blood, Med 238 mg/dL; Globulin, Blood 4.2 g/dL (2.2-4.0); Glomerular Filtration Rate >60 (60-); Glucose, Blood 92 mg/dL (70-99); Potassium, Blood 3.8 mmol/L (3.5-5.5); Sodium, Blood 143 mmol/L (136-145); Total Protein, Blood 6.4 g/dL (6.4-8.2)
== END 2020-07-29 01:47 | disposition home or self-care (01) ==
LOC: ER 23:45
PROVIDERS: Emergency Medicine
DX: F10.120 Alcohol abuse with intoxication, uncomplicated (principal); Z79.899 Other long term (current) drug therapy; F17.210 Nicotine dependence, cigarettes, uncomplicated
CPT/HCPCS: 36415; 71046; 72040; 80053; 85025; 99284-25; A9270; G0480

== ENCOUNTER 2024-08-27 12:40 | Day surgery (SDC) | payer OTHER ==
[2024-08-27] VITALS (9 sets, daily range): BP systolic 133–179; BP diastolic 97–121
[~2024-08-27] VITALS: Ht 167.6 cm; Wt 65.0 kg
[~2024-08-27 12:40] MED LIST changes: +ATOR40TA PO
[2024-08-27] MEDS ORDERED: Lactated Ringer's 1,000 ML IV SCH (13:15)
[2024-08-27] MEDS ORDERED: CeFAZolin Sodium 2,000 MG in NS 100 ML IV SCH (13:15)
--- NOTE | 2024-08-27 14:05 | NUR ---
Pt RESTING IN BED IN DAY SURGERY. FIRST SET OF PRE-OP VITALS REVEALED HTN, DIASTOLIC BP CONSITANTLY OVER 115, SYSTOLIC IN THE 170'S. FOUR SETS OF BLOOD PRESSURES TAKEN, BOTH ARMS UTILIZED, BP CONTINUED TO INCREASE. ANESTHESIA NOTIFIED. PATIENT IN NO DISTRESS, REPORTS NO CHEST PAIN, NO SOB, NO HEADACHE. PT CALM AND WAITING FOR ANESTHESIA INTERVIEW IN PREOP
[2024-08-27] MEDS ORDERED: Bupivacaine 0.5% HCl 5 MG/ML 30MLVIAL ONE (14:58)
[2024-08-27 15:06] LABS: BASOPHILS ABSOLUTE AUTO 0.09 K/mm3 (0.00-0.23); BASOPHILS PERCENT AUTO 1 % (0-2); EOSINOPHILS ABSOLUTE AUTO 0.13 K/mm3 (0.00-0.68); EOSINOPHILS PERCENT AUTO 2 % (0-6); Hematocrit 43.9 % (37.0-53.0); Hemoglobin 15.2 g/dL (13.5-17.5); IMMATURE GRAN ABSOLUTE AUTO 0.02 K/mm3 (0.00-0.10); IMMATURE GRAN PERCENT AUTO 0 % (0-1); LYMPHOCYTES ABSOLUTE AUTO 2.04 K/mm3 (0.84-5.20); LYMPHOCYTES PERCENT AUTO 29 % (21-46); MONOCYTES ABSOLUTE AUTO 0.56 K/mm3 (0.16-1.47); MONOCYTES PERCENT AUTO 8 % (4-13); Mean Corpuscular HGB 31.1 pg (26.0-34.0); Mean Corpuscular HGB Conc 34.6 g/dL (31.5-36.5); Mean Corpuscular Volume 90 fL (80-100); Mean Platelet Volume 9.2 fL (9.1-12.4); NEUTROPHILS ABSOLUTE AUTO 4.16 K/mm3 (1.96-9.15); NEUTROPHILS PERCENT AUTO 59 % (41-73); Platelet Count 280 K/mm3 (150-400); RDW Standard Deviation 39.4 fL (35.1-46.3); Red Blood Cell Count 4.88 M/mm3 (4.30-5.90)
[2024-08-27 15:23] LABS: Albumin, Blood 4.4 g/dL (3.4-5.0); Albumin/Globulin Ratio 1.2 (0.8-1.8); Bilirubin, Total 0.5 mg/dL (0.1-1.0); Bun/Creatinine Ratio 12.2 (12.0-20.0); Calcium, Blood 8.7 mg/dL (8.5-10.1); Creatinine, Blood 0.74 mg/dL (0.60-1.20); Globulin, Blood 3.7 g/dL (2.2-4.0); Potassium, Blood 3.6 mmol/L (3.5-5.5); Total Protein, Blood 8.1 g/dL (6.4-8.2)
[2024-08-27] MEDS ORDERED: HYDROmorphone HCl/Pf 1MG SYR IV PRN ×2 (16:05→16:25)
[2024-08-27] MEDS ORDERED: Ondansetron HCl 2 MG / ML 2ML Vial IV PRN (16:05)
[2024-08-27] MEDS ORDERED: FentaNYL Citrate 50 MCG/ML 2 ML Injection IV PRN ×2 (16:05→16:10)
[2024-08-27] MEDS ORDERED: HydrALAZINE HCl 20 MG / ML 1ML Vial IV PRN (16:25)
[2024-08-27] MEDS ORDERED: Glycopyrrolate 0.2 MG/ML 5ML VIAL ONE (16:32)
[2024-08-27] MEDS ORDERED: propofoL 20 ML IV ONE (16:34)
[2024-08-27] MEDS ORDERED: ePHEDrine Sulfate 50 MG/ML 1ML Injection ONE (16:34)
[2024-08-27] MEDS ORDERED: Labetalol HCL 5 MG/ML 4ML Injection (Single Dose) ONE (16:34)
[2024-08-27] MEDS ORDERED: HydrALAZINE HCl 20 MG / ML 1ML Vial ONE (16:34)
[2024-08-27] MEDS ORDERED: FentaNYL Citrate 50 MCG/ML 2 ML Injection ONE (16:34)
[2024-08-27] MEDS ORDERED: Midazolam HCl 1MG / ML 2ML Vial ONE (16:34)
[2024-08-27] MEDS ORDERED: Dexamethasone Sod Phos 10 MG/ML 1ML VIAL ONE (17:16)
[2024-08-27] MEDS ORDERED: Ondansetron HCl 2 MG / ML 2ML Vial ONE (17:16)
[2024-08-27] MEDS ORDERED: Sugammadex Sodium 200 MG/2ML SDV (100 MG/ML) ONE (17:16)
[2024-08-27] MEDS ORDERED: Ketorolac Tromethamine 30mg Vial ONE (17:17)
[2024-08-27] MEDS ORDERED: HYDROmorphone HCl/Pf 1MG SYR ONE (17:19)
[2024-08-27] MEDS ORDERED: OxyCODONE 5 mg/Acetamin 325 mg TABLET PO PRN (17:50)
== END 2024-08-27 23:00 | disposition home or self-care (01) ==
LOC: ORSCMMR 12:40 → ORD 14:30 → ORSCMMR 14:30
PROVIDERS: Surgery
PROC: 0YU54JZ Supplement Right Inguinal Region with Synthetic Substitute, Percutaneous Endoscopic Approach (ICD-10-PCS; principal; 2024-08-27 14:30)
PROC: 3E0T3BZ Introduction of Anesthetic Agent into Peripheral Nerves and Plexi, Percutaneous Approach (ICD-10-PCS; principal; 2024-08-27 14:30)
PROC: 8E0W4CZ Robotic Assisted Procedure of Trunk Region, Percutaneous Endoscopic Approach (ICD-10-PCS; principal; 2024-08-27 14:30)
DX: K40.30 Unilateral inguinal hernia, with obstruction, without gangrene, not specified as recurrent (principal); K66.0 Peritoneal adhesions (postprocedural) (postinfection); I10 Essential (primary) hypertension; E78.5 Hyperlipidemia, unspecified; Z87.891 Personal history of nicotine dependence; Z79.899 Other long term (current) drug therapy
CPT/HCPCS: 80053; 85025; 93005; 93010; A9270; C1781; J0360; J0690; J1100; J1171; J1885; J2250; J2405; J2704; J3010; J7120